=== PATIENT | female | born 2000 | race Caucasian/White ===

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

== ENCOUNTER → 2018-06-29 15:28 | Outpatient (CLI) | payer OTHER, MEDICAID, SELFPAY ==
[2018-06-29 15:50] LABS: Add Manual Diff / Slide Review NO; Basophils Absolute Auto 0 /uL (0-100); Basophils Percent Auto 0.4 % (0-2); Eosinophils Absolute Auto 300 /uL (0-450); Eosinophils Percent Auto 3.3 % (2-4); Hematocrit 40.6 % (36-46); Hemoglobin 13.4 g/dL (12.0-16.0); Lymphocytes Absolute Auto 2000 /uL (1100-4500); Lymphocytes Percent Auto 22.1 % (25-40); Mean Corpuscular Hemoglobin 28.2 PG (26-34); Mean Corpuscular Volume 85.5 fL (80-100); Monocytes Absolute Auto 600 /uL (0-900); Monocytes Percent Auto 6.2 % (3-14); Neutrophils Absolute Auto 6000 /uL (1500-7000); Platelet Count 323 X10^3/uL (150-400); Red Blood Cell Count 4.75 X10^6/uL (4.0-5.2); Red Cell Distribution Width 14.4 % (11.6-14.8); White Blood Cell Count 8.9 X10^3/uL (4.5-11.0)
[2018-06-29 16:51] LABS: BUN Creatinine Ratio 18.6 (6-22); Blood Urea Nitrogen 13 mg/dL (7-17); Calcium 9.4 mg/dL (8.4-10.2); Carbon Dioxide 24 mmol/L (22-32); Chloride 103 mmol/L (98-107); Estimated Glomerular Filt Rate > 60.0 mL/min (>60); Glucose 83 mg/dL (70-100); HEMOLYSIS 26 (0-50); Potassium 5.1 mmol/L (3.4-5.1); Sodium 139 mmol/L (137-145)
[2018-06-29 17:22] LABS: TSH w/ Reflex to FT4 2.02 uIU/mL (0.47-4.68)
[2018-06-29 17:40] LABS: Vitamin B12 516 pg/mL (239-931)
== END ==
PROVIDERS: PCP Family Medicine; Visit Provider Family Medicine
DX: F41.8 Other specified anxiety disorders (principal); G56.03 Carpal tunnel syndrome, bilateral upper limbs
CPT/HCPCS: 36415; 80048; 82607; 84443; 85025

== ENCOUNTER 2019-06-05 23:33 | Emergency (ER) | payer OTHER, MEDICAID, SELFPAY ==
[2019-06-05 23:39] VITALS: BP 144/93; PULSE 104; RESP 18; TEMP 37; O2SAT 98
--- NOTE | 2019-06-05 23:46 | DI.RAD.S_ITS ---
PROCEDURE: XR HIP W PEL IF DONE RT 2V INDICATIONS: pain right hip TECHNIQUE: AP pelvis with lateral view(s) of the right hip(s). COMPARISON: None. FINDINGS: Bones: No displaced fractures or dislocations. Pelvic ring appears intact. No suspicious bony lesions. No significant degenerative changes of the pelvic joints are present. Soft tissues: The visualized bowel gas pattern is normal. No suspicious soft tissue calcifications. An intrauterine contraceptive device is identified within the mid pelvis. IMPRESSION: No acute fractures of the right hip. Note: The preliminary ED physician interpretation and the final report are concordant. Dictated by: Reynaldo Tapia M.D. on 06/06/2019 at 7:05 Approved by: Reynaldo Tapia M.D. on 06/06/2019 at 7:06
--- NOTE | 2019-06-05 23:47 | ED_ITS ---
HPI - General Adult General Chief complaint: Urogenital-Female Stated complaint: pelvic pain spreading to hip and down femur Time Seen by Provider: 06/05/19 23:38 Source: patient Mode of arrival: Ambulatory Limitations: no limitations History of Present Illness HPI narrative: 19-year-old female here for evaluation of right lower quadrant abdominal/adnexal pain and right hip pain. Patient states it has been going on for the past 3-4 days. She took 1 dose of ibuprofen today and 1 dose of Tylenol yesterday without any improvement. No urinary symptoms. No vaginal bleeding. No change in bowel habits. No specific trauma. States that it started approximately 4 days ago while she was at work. She states that it initially felt like it was a ?cramp? that she normally has when she has menstrual cycles however now it is more painful in her right anterior thigh. Related Data Home Medications Medication Instructions Recorded Confirmed trazodone 50 mg tablet 50 mg PO BEDTIME PRN 03/01/19 03/08/19 venlafaxine 75 mg tablet 75 mg PO DAILY 03/01/19 03/08/19 Previous Rx's Medication Instructions Recorded loratadine 10 mg tablet 10 mg PO DAILY #30 tab 09/25/17 levonorgestrel 0.15 mg-ethinyl 1 tab PO DAILY #84 tab 10/23/18 estradiol 0.03 mg tablet doxycycline hyclate 100 mg capsule 100 mg PO BID #28 cap 03/08/19 Allergies Allergy/AdvReac Type Severity Reaction Status Date / Time No Known Allergies Allergy Uncoded 03/08/19 10:33 Review of Systems Constitutional Constitutional: Denies fever(s) Cardiovascular Cardiovascular: Denies chest pain and Denies dyspnea Respiratory Respiratory: Denies dyspnea Gastrointestinal Gastrointestinal: Reports abdominal pain (Right lower quadrant), Denies nausea and Denies vomiting Genitourinary Genitourinary: Denies dysuria, Reports pelvic pain (Right adnexa) and Denies vaginal discharge Musculoskeletal Comments: Right anterior thigh pain Integumentary/Breasts Skin/Breast: Denies rash Neurologic Neurologic: Denies behavioral changes Psychiatric Psychiatric: Denies behavioral changes Hematologic/Lymphatic Hematologic/Lymphatic: Denies easy bleeding and Denies easy bruising Patient History Medical History Allergic rhinitis (Chronic) Asthma (Chronic) Carpal tunnel syndrome on both sides (Chronic) Depression with anxiety (Chronic) History of self mutilation (Chronic) Insomnia (Chronic) Irregular menses (Resolved) Nexplanon in place (Chronic ~04/2016) Vision disorder (Chronic) Surgical History (Updated 12/07/17 @ 09:30 by Mariaelena Wilkerson) [place] teeth extracted (Chronic ~06/06/16) Family History (Updated 12/07/17 @ 09:32 by Mariaelena Wilkerson) Father Hypertension Mother Diabetes mellitus Heart disease Hypertension Hyperlipidemia Stroke Brother Diabetes mellitus Social History other: rare ETOH, rare THC Smoking Status: Never smoker alcohol intake: current substance use type: marijuana Smoking Status: Never smoker alcohol intake frequency: 0-2 drinks per day Substance Use Type: does not use Exam Initial Vital Signs Initial Vital Signs: Vital Signs Temperature 98.6 F 06/05/19 23:39 Pulse Rate 104 H 06/05/19 23:39 Respiratory Rate 18 06/05/19 23:39 Blood Pressure 144/93 H 06/05/19 23:39 Pulse Oximetry 98 06/05/19 23:39 Const General: cooperative and comfortable HENMT Head: normal to inspection and normocephalic Resp Effort & Inspection: normal respiratory effort Auscultation: clear to auscultation bilaterally Cardio Rate: regular rate GI Inspection: non-distended Palpation: soft, No firm and tender (Right adnexa) Back/Spine/Pelvis Back: No CVA tenderness Skin Lesions: no lesions Rashes: no rashes Neuro General: alert and awake Cognition: normal cognition Gait: normal gait Extrem Other: Patient with tenderness to palpation on the right anterior thigh and over the greater trochanter on the left with palpation. Pain when she raises her right leg. Pain with internal and external rotation of the right hip. Psych Appearance: grossly normal and well kempt Course Orders Ordered: ED Orders 06/05/19 23:46 XR hip w pel if done RT 2V Stat Vital Signs Vital signs: Vital Signs - 8 hr 06/05/19 23:39 Temperature 98.6 F Pulse Rate 104 H Respiratory Rate 18 Blood Pressure 144/93 H Pulse Oximetry 98 Medical Decision Making Lab Data Lab results reviewed: Yes I reviewed the patient's lab results. Labs: Point of Care Testing Test Results Negative Urine Dip Bedside Urine Glucose Negative Bedside Urine Bilirubin - Negative Bedside Urine Ketone - Negative Urine Specific [place] 1.030 Bedside Urine Occult Blood +/- Bedside Urine pH 6.0 Bedside Urine Protein +/- 15 Bedside Urine Urobilinogen - Negative Bedside Urine Nitrite - Negative Bedside Urine Leukocytes - Negative Esterase Point of care testing: Point of Care Testing Test Results Negative Urine Dip Bedside Urine Glucose Negative Bedside Urine Bilirubin - Negative Bedside Urine Ketone - Negative Urine Specific [place] 1.030 Bedside Urine Occult Blood +/- Bedside Urine pH 6.0 Bedside Urine Protein +/- 15 Bedside Urine Urobilinogen - Negative Bedside Urine Nitrite - Negative Bedside Urine Leukocytes - Negative Esterase Imaging Data Extremity x-ray #1: Attestation: I personally reviewed and interpreted this imaging study as follows: My Impression: No fracture dislocation right hip x-ray [facility] Narrative Medical decision making narrative: Patient without any vaginal bleeding. No urinary symptoms. Labs unremarkable. Does have tenderness to palpation over the right groin area and also over the anterior thigh and also over the greater trochanter on the right. Considered ovarian pathology however her exam I feel is less likely an ovarian torsion. Also considered other issues such as a femoral hernia however I do feel that the most likely cause is musculoskeletal. The x-ray showed no signs of fractures. I do not feel the patient needs emergent ultrasound. Discussed return precautions and follow-up instructions. Patient expressed understanding and agreement plan. Discharge Plan Departure Patient Disposition: Home Clinical Impression: Rt groin pain Activity Restrictions/Additional Instructions: Recommend that you continue with the Tylenol and ibuprofen. On Friday contact your primary provider for a follow-up. Return to the emergency department for any new or worsening symptoms Prescriptions: No Action loratadine [Allergy Relief (loratadine)] 10 mg tablet 10 mg PO DAILY Qty: 30 RF: 5 levonorgestrel-ethinyl estrad [[place] (28)] 0.15-0.03 mg tablet 1 tab PO DAILY Qty: 84 RF: 0 venlafaxine 75 mg tablet 75 mg PO DAILY RF: 0 trazodone 50 mg tablet 50 mg PO BEDTIME PRNRF: 0 doxycycline hyclate 100 mg capsule 100 mg PO BID Qty: 28 RF: 0 Referrals: Sophy Mak DO [Primary Care Provider] -
== END 2019-06-06 00:50 | disposition home or self-care (01) ==
PROVIDERS: Emergency Provider Emergency Medicine; PCP Family Medicine
DX: R10.31 Right lower quadrant pain (principal)
CPT/HCPCS: 73502; 81003; 81025; 99283

== ENCOUNTER → 2020-04-28 11:43 | Outpatient (CLI) | payer OTHER, MEDICAID, SELFPAY ==
[2020-04-28 12:57] LABS: Hematocrit 40.2 % (36-46); Hemoglobin 13.3 g/dL (12.0-16.0); Mean Corpuscular HGB Conc 32.9 % (30-36); Mean Corpuscular Hemoglobin 27.8 PG (26-34); Mean Corpuscular Volume 84.4 fL (80-100); Platelet Count 379 X10^3/uL (150-400); Red Blood Cell Count 4.77 X10^6/uL (4.0-5.2); Red Cell Distribution Width 14.8 % (11.6-14.8); White Blood Cell Count 7.4 X10^3/uL (4.5-11.0)
[2020-04-28 13:58] LABS: BUN Creatinine Ratio 12.2 (6-22); Blood Urea Nitrogen 10 mg/dL (7-17); Calcium 9.8 mg/dL (8.4-10.2); Carbon Dioxide 27 mmol/L (22-32); Chloride 106 mmol/L (98-107); Estimated Glomerular Filt Rate > 60.0 mL/min (>60); Glucose 95 mg/dL (70-100); HEMOLYSIS < 15 (0-50); Potassium 4.3 mmol/L (3.4-5.1); Sodium 139 mmol/L (137-145)
[2020-04-29 06:36] LABS: HSV 2 IGG AB < 0.91 index (0.00-0.90); HSV1IGG < 0.91 index (0.00-0.90)
[2020-04-29 08:08] LABS: RPR Screen Non Reactive (Non Reactive)
[2020-05-01 17:25] LABS: Hepatitis B Surface Antigen NEGATIVE s/c (NEGATIVE)
[2020-05-01 17:33] LABS: HIV 1 & 2 Ab/Ag 4th Gen Combo NEGATIVE (NEGATIVE); Hep C Virus Ab w/Reflex Quant NEGATIVE s/c (NEGATIVE)
== END ==
PROVIDERS: PCP Family Medicine; Referring Provider Nurse Practitioner Family; Visit Provider Nurse Practitioner Family
DX: Z20.2 Contact with and (suspected) exposure to infections with a predominantly sexual mode of transmission (principal); J45.20 Mild intermittent asthma, uncomplicated
CPT/HCPCS: 36415; 80048; 85027; 86592; 86695; 86696; 86803; 87340; 87389; 87491; 87591

== ENCOUNTER → 2020-05-28 13:57 | Outpatient (CLI) | payer OTHER, MEDICAID, SELFPAY ==
[2020-05-28 16:14] LABS: COVID19 -Nasal RAPID Negative (Negative)
== END ==
PROVIDERS: PCP Family Medicine; Visit Provider Physician Assistant
DX: Z20.822 Contact with and (suspected) exposure to COVID-19 (principal); J02.9 Acute pharyngitis, unspecified
CPT/HCPCS: 87070; 87635

== ENCOUNTER → 2021-06-12 16:38 | Outpatient (CLI) | payer OTHER, MEDICAID, SELFPAY ==
[2021-06-12 16:58] LABS: COVID19 -Nasal RAPID Negative (Negative)
== END ==
PROVIDERS: PCP Family Medicine; Referring Provider Physician Assistant; Visit Provider Physician Assistant
DX: Z20.822 Contact with and (suspected) exposure to COVID-19 (principal)
CPT/HCPCS: 87635

== ENCOUNTER 2022-06-15 12:17 | Emergency (ER) | payer OTHER, MEDICAID, SELFPAY ==
[2022-06-15] VITALS (25 sets, daily range): BP systolic 114–145; BP diastolic 67–96; PULSE 58–80; RESP 18–43; TEMP 36.6; O2SAT 98–100; BMI 43.0
--- NOTE | 2022-06-15 12:33 | DI.RAD.S_ITS ---
PROCEDURE: XR CHEST 1V INDICATIONS: Shortness of breath TECHNIQUE: One view of the chest was acquired. COMPARISON: None. FINDINGS: Surgical changes and devices: None. Lungs and pleura: Lungs are clear. No pleural effusions or pneumothorax. Mediastinum: Mediastinal contours appear normal. Heart size is normal. Bones and chest wall: No suspicious bony lesions. Overlying soft tissues appear unremarkable. IMPRESSION: No acute cardiopulmonary disease. Dictated by: Natlaie Flores M.D. on 06/15/2022 at 12:06 Approved by: Natalie Flores M.D. on 06/15/2022 at 12:06
[2022-06-15 13:18] LABS: Add Manual Diff / Slide Review NO; Basophils Absolute Auto 0 /uL (0-100); Basophils Percent Auto 0.3 % (0-2); Eosinophils Absolute Auto 100 /uL (0-450); Eosinophils Percent Auto 3.7 % (2-4); Hematocrit 38.9 % (36-46); Hemoglobin 13.1 g/dL (12.0-16.0); Lymphocytes Absolute Auto 1700 /uL (1100-4500); Lymphocytes Percent Auto 46.2 % (25-40); Mean Corpuscular HGB Conc 33.8 % (30-36); Mean Corpuscular Hemoglobin 28.1 PG (26-34); Mean Corpuscular Volume 83.2 fL (80-100); Monocytes Absolute Auto 300 /uL (0-900); Monocytes Percent Auto 9.3 % (3-14); Neutrophils Absolute Auto 1500 /uL (1500-7000); Neutrophils Percent Auto 40.5 % (50-75); Platelet Count 251 X10^3/uL (150-400); Red Blood Cell Count 4.67 X10^6/uL (4.0-5.2); Red Cell Distribution Width 14.1 % (11.6-14.8); White Blood Cell Count 3.7 X10^3/uL (4.5-11.0)
[2022-06-15 13:23] LABS: INR 1.2 (0.9-1.3); Prothrombin Time 14.1 SECONDS (10.1-12.7)
[2022-06-15 13:27] LABS: Lactate (Lactic Acid) 0.9 mmol/L (0.7-2.1)
--- NOTE | 2022-06-15 13:27 | ED_ITS ---
HPI - SOB/Dyspnea <Gianna Fajardo PA-C - Last Filed: 06/15/22 20:43> General Chief Complaint: Shortness of Breath/Dyspnea Stated Complaint: hurts to breathe/flu/vision blurry/not holding liq Time Seen by Provider: 06/15/22 12:20 Source: patient Mode of arrival: Ambulatory Limitations: no limitations History of Present Illness HPI Narrative: This is a 22-year-old female with a history of obesity, asthma, depression and anxiety who presents with concern for URI symptoms with cough and intermittent shortness of breath as well as vomiting for the past 6 days and concern for chest pain when she takes a breath. Patient states her symptoms started on Friday 6 days ago with headache, sore throat and progressed to a cough by Friday she was vomiting frequently and having difficulty keeping food or fluids down. She states she has not been taking her medications since Friday including her psych medications because she has not been able to keep things down. She thinks she may have eaten something early in the week but feels she has not actually had any fluids for the last 2 days. She states she missed work early in the week but had to go back to work yesterday and when she was returning from work walking home she said she felt very dizzy and unwell at 1 point. She went to sleep around 4:00 p.m. and woke up at 10 this morning. She did have a normal bowel movement this morning for her. After talking to her mother on the phone her mother convinced her to come into the emergency department. She denies any persistent chest pain, back pain, fevers, diarrhea or any other symptoms. Related Data Previous Rx's Medication Instructions Recorded loratadine 10 mg tablet (Allergy 10 mg PO DAILY #30 tabs 12/17/19 Relief (loratadine)) albuterol sulfate 90 mcg/actuation 2 puff inhalation Q4HP PRN 05/08/22 aerosol inhaler (Ventolin HFA) shortness of breath or wheezing #2 ea amitriptyline 10 mg tablet 10 mg PO BEDTIME PRN sleep #30 tabs 05/08/22 fluoxetine 10 mg capsule 10 mg PO DAILY #30 caps 05/08/22 hydroxyzine HCl 25 mg tablet 25 mg PO QID PRN anxiety #30 tabs 05/08/22 benzonatate 100 mg capsule 100 mg PO TID PRN cough 7 days #21 06/15/22 caps ondansetron 4 mg disintegrating 4 mg PO Q6H PRN nausea and 06/15/22 tablet vomiting #30 tabs Allergies Allergy/AdvReac Type Severity Reaction Status Date / Time No Known Allergies Allergy Uncoded 03/20/22 11:32 Review of Systems <Gianna Fajardo PA-C - Last Filed: 06/15/22 20:43> Review of Systems Narrative: Unremarkable except as noted in the HPI Patient History <Gianna Fajardo PA-C - Last Filed: 06/15/22 20:43> Medical History (Updated 06/15/22 @ 16:54 by Gianna Fajardo PA-C) Allergic rhinitis Asthma Carpal tunnel syndrome on both sides Depression with anxiety History of self mutilation Insomnia Irregular menses Nexplanon in place (~04/2016) Vision disorder Surgical History [place] teeth extracted (~06/06/16) Family History Father Hypertension Mother Diabetes mellitus Heart disease Hypertension Hyperlipidemia Stroke Brother Diabetes mellitus Social History other: rare ETOH, rare THC Smoking Status: Never smoker alcohol intake: current substance use type: marijuana Smoking Status: Never smoker alcohol intake frequency: 0-2 drinks per day Substance Use Type: marijuana Exam <Gianna Fajardo PA-C - Last Filed: 06/15/22 20:43> Initial Vital Signs Initial Vital Signs: Vital Signs Temperature 98 F 06/15/22 12:20 Pulse Rate 79 06/15/22 12:20 Respiratory Rate 18 06/15/22 12:20 Blood Pressure 141/75 H 06/15/22 12:20 Pulse Oximetry 98 06/15/22 12:20 Oxygen Delivery Method 06/15/22 12:20 HENMT Head: normal to inspection Face and sinus: normal facial exam Eyes General: Yes appearance normal, both eyes and all related structures Pupils: PERRL Resp Effort & Inspection: normal respiratory effort Auscultation: clear to auscultation bilaterally GI Inspection: normal to inspection and other (Protuberant) Palpation: soft and No tender Auscultation: normal bowel sounds Skin General: no rashes or lesions noted Extrem General: normal to inspection <Bhumi Alvarado DO - Last Filed: 06/16/22 08:26> Initial Vital Signs Initial Vital Signs: Vital Signs Temperature 98 F 06/15/22 12:20 Pulse Rate 79 06/15/22 12:20 Respiratory Rate 18 06/15/22 12:20 Blood Pressure 141/75 H 06/15/22 12:20 Pulse Oximetry 98 06/15/22 12:20 Oxygen Delivery Method 06/15/22 12:20 Course <Gianna Fajardo PA-C - Last Filed: 06/15/22 20:43> Orders Ordered: Discontinued Medications Sodium Chloride (Normal Saline 0.9%) 1,000 mls @ 1,000 mls/hr IV BOLUS ONE Stop: 06/15/22 14:30 Last Infusion: 06/15/22 17:16 Dose: 0 mls/hr Documented By: Admin: 06/15/22 13:59 Dose: 1,000 mls/hr Documented By: OUSMANE Ondansetron HCl (Ondansetron 4 Mg/2 Ml Inj) 4 mg IV NOW ONE Stop: 06/15/22 14:02 Last Admin: 06/15/22 14:05 Dose: 4 mg Documented By: OUSMANE Reevaluation(s) Reevaluation #1: Did rechecked the patient and discuss lab results with her so far as well as the chest x-ray which was unremarkable and the fact that she did return COVID positive on testing today. We will wait for additional fluids to bolus in as she is a little dehydrated. And advised her that we plan to do a p.o. challenge. She did receive Zofran but does not feel that she necessarily has her nausea completely under control. We will consider additional antiemetics as needed. Time: 15:55 Vital Signs Vital signs: Vital Signs - 8 hr 06/15/22 12:39 06/15/22 12:39 06/15/22 13:00 Pulse Rate 76 69 Respiratory Rate 20 20 Blood Pressure 143/81 H Pulse Oximetry 100 100 06/15/22 13:14 06/15/22 13:14 06/15/22 13:30 Pulse Rate 70 63 Respiratory Rate 20 23 Blood Pressure 136/93 H Pulse Oximetry 100 99 06/15/22 13:37 06/15/22 13:37 06/15/22 14:00 Pulse Rate 66 67 Respiratory Rate 43 H 27 H Blood Pressure 145/96 H Pulse Oximetry 99 100 06/15/22 14:03 06/15/22 14:03 06/15/22 14:09 Pulse Rate 72 Respiratory Rate 24 Blood Pressure 136/95 H 118/67 Pulse Oximetry 99 06/15/22 14:09 06/15/22 14:21 06/15/22 14:21 Pulse Rate 63 66 Respiratory Rate 24 29 H Blood Pressure 118/68 Pulse Oximetry 99 99 06/15/22 14:30 06/15/22 15:00 06/15/22 15:01 Pulse Rate 62 61 Respiratory Rate 26 H 21 Blood Pressure 114/74 Pulse Oximetry 99 99 06/15/22 15:01 06/15/22 15:20 06/15/22 15:20 Pulse Rate 58 L 61 Respiratory Rate 20 21 Blood Pressure 129/71 Pulse Oximetry 100 98 06/15/22 15:30 06/15/22 15:40 06/15/22 15:40 Pulse Rate 70 74 Respiratory Rate 23 22 Blood Pressure 134/74 Pulse Oximetry 98 100 06/15/22 16:00 06/15/22 16:01 06/15/22 16:01 Pulse Rate 66 64 Respiratory Rate 22 Blood Pressure 138/96 H Pulse Oximetry 100 99 06/15/22 16:21 06/15/22 16:21 06/15/22 16:30 Pulse Rate 67 80 Respiratory Rate 28 H Blood Pressure 131/74 Pulse Oximetry 100 100 06/15/22 17:00 06/15/22 17:01 06/15/22 17:01 Pulse Rate 69 68 Respiratory Rate 22 25 H Blood Pressure 131/71 Pulse Oximetry 100 100 06/15/22 17:12 06/15/22 17:12 Pulse Rate 69 Respiratory Rate 20 Blood Pressure 133/73 Pulse Oximetry 100 <Bhumi Alvarado, - Last Filed: 06/16/22 08:26> Orders Ordered: Discontinued Medications Sodium Chloride (Normal Saline 0.9%) 1,000 mls @ 1,000 mls/hr IV BOLUS ONE Stop: 06/15/22 14:30 Last Infusion: 06/15/22 17:16 Dose: 0 mls/hr Documented By: Admin: 06/15/22 13:59 Dose: 1,000 mls/hr Documented By: OUSMANE Ondansetron HCl (Ondansetron 4 Mg/2 Ml Inj) 4 mg IV NOW ONE Stop: 06/15/22 14:02 Last Admin: 06/15/22 14:05 Dose: 4 mg Documented By: OUSMANE Vital Signs Vital signs: Vital Signs - 8 hr 06/15/22 12:39 06/15/22 12:39 06/15/22 13:00 Pulse Rate 76 69 Respiratory Rate 20 20 Blood Pressure 143/81 H Pulse Oximetry 100 100 06/15/22 13:14 06/15/22 13:14 06/15/22 13:30 Pulse Rate 70 63 Respiratory Rate 20 23 Blood Pressure 136/93 H Pulse Oximetry 100 99 06/15/22 13:37 06/15/22 13:37 06/15/22 14:00 Pulse Rate 66 67 Respiratory Rate 43 H 27 H Blood Pressure 145/96 H Pulse Oximetry 99 100 06/15/22 14:03 06/15/22 14:03 06/15/22 14:09 Pulse Rate 72 Respiratory Rate 24 Blood Pressure 136/95 H 118/67 Pulse Oximetry 99 06/15/22 14:09 06/15/22 14:21 06/15/22 14:21 Pulse Rate 63 66 Respiratory Rate 24 29 H Blood Pressure 118/68 Pulse Oximetry 99 99 06/15/22 14:30 06/15/22 15:00 06/15/22 15:01 Pulse Rate 62 61 Respiratory Rate 26 H 21 Blood Pressure 114/74 Pulse Oximetry 99 99 06/15/22 15:01 06/15/22 15:20 06/15/22 15:20 Pulse Rate 58 L 61 Respiratory Rate 20 21 Blood Pressure 129/71 Pulse Oximetry 100 98 06/15/22 15:30 06/15/22 15:40 06/15/22 15:40 Pulse Rate 70 74 Respiratory Rate 23 22 Blood Pressure 134/74 Pulse Oximetry 98 100 06/15/22 16:00 06/15/22 16:01 06/15/22 16:01 Pulse Rate 66 64 Respiratory Rate 22 Blood Pressure 138/96 H Pulse Oximetry 100 99 06/15/22 16:21 06/15/22 16:21 06/15/22 16:30 Pulse Rate 67 80 Respiratory Rate 28 H Blood Pressure 131/74 Pulse Oximetry 100 100 06/15/22 17:00 06/15/22 17:01 06/15/22 17:01 Pulse Rate 69 68 Respiratory Rate 22 25 H Blood Pressure 131/71 Pulse Oximetry 100 100 06/15/22 17:12 06/15/22 17:12 Pulse Rate 69 Respiratory Rate 20 Blood Pressure 133/73 Pulse Oximetry 100 MDM - SOB/Dyspnea <Gianna Fajardo PA-C - Last Filed: 06/15/22 20:43> Differential Diagnosis Differential diagnosis: Likely other (Viral illness, anxiety, COVID-19) Condition is:: Well Controlled Condition is at treatment goal?: Yes Medical Records Medical records narrative: I care for this patient during her emergency department stay. I also discussed this patient with Dr. Alvarado emergency department attending. Lab Data Result diagrams: 06/15/22 13:02 06/15/22 13:02 Labs: Lab Results 06/15/22 06/15/22 06/15/22 Range/Units 12:27 13:02 13:02 WBC 3.7 L (4.5-11.0) X10^3/uL RBC 4.67 (4.0-5.2) X10^6/uL Hgb 13.1 (12.0-16.0) g/dL Hct 38.9 (36-46) % MCV 83.2 (80-100) fL MCH 28.1 (26-34) PG MCHC 33.8 (30-36) % RDW 14.1 (11.6-14.8) % Plt Count 251 (150-400) X10^3/uL Neut % (Auto) 40.5 L (50-75) % Lymph % (Auto) 46.2 H (25-40) % Norton % (Auto) 9.3 (3-14) % Eos % (Auto) 3.7 (2-4) % Baso % (Auto) 0.3 (0-2) % Neut # (Auto) 1500 (2167-1719) /uL Lymph # (Auto) 1700 (1463-8747) /uL Norton # (Auto) 300 (0-900) /uL Eos # (Auto) 100 (0-450) /uL Baso # (Auto) 0 (0-100) /uL PT 14.1 H (10.1-12.7) SECONDS INR 1.2 (0.9-1.3) Sodium (137-145) mmol/L Potassium (3.4-5.1) mmol/L Chloride (98-107) mmol/L Carbon Dioxide (22-32) mmol/L BUN (7-17) mg/dL Creatinine (0.52-1.04) mg/dL Estimated GFR (>60) mL/min BUN/Creatinine Ratio (6-22) Glucose (70-100) mg/dL Lactate (0.7-2.1) mmol/L Calcium (8.4-10.2) mg/dL Total Bilirubin (0.2-1.3) mg/dL AST (14-36) IU/L ALT (<35) IU/L Alkaline Phosphatase (38-126) U/L Troponin I (0.01-0.034) ng/mL NT-Pro-B Natriuret Pep (<125) pg/mL Total Protein (6.3-8.2) g/dL Albumin (3.5-5.0) g/dL Globulin (1.7-4.1) g/dL Albumin/Globulin Ratio (1.0-2.8) Chlamy pneumoniae PCR Not detected (Not Detect) Adenovirus (PCR) Not detected (Not Detect) B. pertussis DNA (PCR) Not detected (Not Detecte) B.parapertussis DNA PCR Not detected (Not Detecte) Coronavirus OC43 (PCR) Not detected (Not Detect) Coronavirus HKU1 (PCR) Not detected (Not Detect) Coronavirus 229E (PCR) Not detected (Not Detect) SARS-CoV-2 (PCR) Detected H (Not Detecte) Coronavirus NL63 (PCR) Not detected (Not Detect) Human Metapneumovir PCR Not detected (Not Detect) Influenza Type A (PCR) Not detected (Not Detect) Influenza Type B (PCR) Not detected (Not Detect) M. pneumoniae (PCR) Not detected (Not Detect) Parainfluenza 1 (PCR) Not detected (Not Detect) Parainfluenza 2 (PCR) Not detected (Not Detect) Parainfluenza 3 (PCR) Not detected (Not Detect) Parainfluenza 4 (PCR) Not detected (Not Detect) RSV (PCR) Not detected (Not Detect) Entero/Rhino (PCR) Not detected (Not Detect) 06/15/22 06/15/22 Range/Units 13:02 13:02 WBC (4.5-11.0) X10^3/uL RBC (4.0-5.2) X10^6/uL Hgb (12.0-16.0) g/dL Hct (36-46) % MCV (80-100) fL MCH (26-34) PG MCHC (30-36) % RDW (11.6-14.8) % Plt Count (150-400) X10^3/uL Neut % (Auto) (50-75) % Lymph % (Auto) (25-40) % Norton % (Auto) (3-14) % Eos % (Auto) (2-4) % Baso % (Auto) (0-2) % Neut # (Auto) (7883-8361) /uL Lymph # (Auto) (8254-2330) /uL Norton # (Auto) (0-900) /uL Eos # (Auto) (0-450) /uL Baso # (Auto) (0-100) /uL PT (10.1-12.7) SECONDS INR (0.9-1.3) Sodium 143 (137-145) mmol/L Potassium 4.1 (3.4-5.1) mmol/L Chloride 106 (98-107) mmol/L Carbon Dioxide 26 (22-32) mmol/L BUN 7 (7-17) mg/dL Creatinine 0.78 (0.52-1.04) mg/dL Estimated GFR > 60 (>60) mL/min BUN/Creatinine Ratio 9.0 (6-22) Glucose 93 (70-100) mg/dL Lactate 0.9 (0.7-2.1) mmol/L Calcium 8.8 (8.4-10.2) mg/dL Total Bilirubin 0.5 (0.2-1.3) mg/dL AST 62 H (14-36) IU/L ALT 41 H (<35) IU/L Alkaline Phosphatase 67 (38-126) U/L Troponin I < 0.012 (0.01-0.034) ng/mL NT-Pro-B Natriuret Pep 85 (<125) pg/mL Total Protein 8.1 (6.3-8.2) g/dL Albumin 4.4 (3.5-5.0) g/dL Globulin 3.7 (1.7-4.1) g/dL Albumin/Globulin Ratio 1.2 (1.0-2.8) Chlamy pneumoniae PCR (Not Detect) Adenovirus (PCR) (Not Detect) B. pertussis DNA (PCR) (Not Detecte) B.parapertussis DNA PCR (Not Detecte) Coronavirus OC43 (PCR) (Not Detect) Coronavirus HKU1 (PCR) (Not Detect) Coronavirus 229E (PCR) (Not Detect) SARS-CoV-2 (PCR) (Not Detecte) Coronavirus NL63 (PCR) (Not Detect) Human Metapneumovir PCR (Not Detect) Influenza Type A (PCR) (Not Detect) Influenza Type B (PCR) (Not Detect) M. pneumoniae (PCR) (Not Detect) Parainfluenza 1 (PCR) (Not Detect) Parainfluenza 2 (PCR) (Not Detect) Parainfluenza 3 (PCR) (Not Detect) Parainfluenza 4 (PCR) (Not Detect) RSV (PCR) (Not Detect) Entero/Rhino (PCR) (Not Detect) Point of Care Testing Glucose POC 90 Imaging Data Chest x-ray: Radiologist's Impression: [address] [address] XRay Report Signed Patient: Dara Cardona MR#: [id number] : 2000 Acct:[id number] Age/Sex: 22 / F Date of Service: 06/15/22 Loc: ED Accession Number: [id number] ?? Procedure: XR chest 1V Ordering Provider: Bhumi Alvarado D.O. PROCEDURE:? XR CHEST 1V ? INDICATIONS:? Shortness of breath ? TECHNIQUE:? One view of the chest was acquired.? ? COMPARISON:? None. ? FINDINGS:? ? Surgical changes and devices:? None.? ? Lungs and pleura:? Lungs are clear.? No pleural effusions or pneumothorax.? ? Mediastinum:? Mediastinal contours appear normal.? Heart size is normal.? ? Bones and chest wall:? No suspicious bony lesions.? Overlying soft tissues appear unremarkable.? ? IMPRESSION:? No acute cardiopulmonary disease.? ? ? Dictated by: Natalie Flores M.D. on 06/15/2022 at 12:06 ? ? Approved by: Natalie Flores M.D. on 06/15/2022 at 12:06?? [facility] Narrative Medical decision making narrative: Is a 22-year-old female with history of obesity and asthma who presents with concern for 6 days of URI/flu-like symptoms with vomiting and inability to keep food and fluids down. Patient also expressed concern for dizziness upon arrival in also acknowledge that she is not been able to keep her medications including her psych meds down due to her frequent vomiting. Reportedly vomited 7 times today. Did eat in the last couple of days but has had little fluid intake in the last 2 days. Labs obtained today are largely unremarkable. She does return positive for COVID despite negative home tests recently. Discussed with the patient that this likely explains her symptoms. I suspect there may also be a slight psych component and anxiety in this patient who has not been taking her anxiety medications for the last 5 days due to reported inability to keep them down. Patient's EKG was unremarkable. Her chest x-ray was not suggestive of a pneumonia and was generally unremarkable. Her vitals remained within normal limits during her emergency department stay. After discussion of plan for symptomatic home management, using her albuterol inhaler as needed, prescription for Zofran for nausea and discussion of need to drink small sips of fluid rather than large quantities and take it easy in terms of her diet for the next few days patient was in understanding and agreement with the plan. Return precautions provided, follow-up plan discussed, all questions answered. <Bhumi Alvarado, DO - Last Filed: 06/16/22 08:26> Lab Data Labs: Lab Results 06/15/22 06/15/22 06/15/22 Range/Units 12:27 13:02 13:02 WBC 3.7 L (4.5-11.0) X10^3/uL RBC 4.67 (4.0-5.2) X10^6/uL Hgb 13.1 (12.0-16.0) g/dL Hct 38.9 (36-46) % MCV 83.2 (80-100) fL MCH 28.1 (26-34) PG MCHC 33.8 (30-36) % RDW 14.1 (11.6-14.8) % Plt Count 251 (150-400) X10^3/uL Neut % (Auto) 40.5 L (50-75) % Lymph % (Auto) 46.2 H (25-40) % Norton % (Auto) 9.3 (3-14) % Eos % (Auto) 3.7 (2-4) % Baso % (Auto) 0.3 (0-2) % Neut # (Auto) 1500 (7244-6207) /uL Lymph # (Auto) 1700 (2293-7713) /uL Norton # (Auto) 300 (0-900) /uL Eos # (Auto) 100 (0-450) /uL Baso # (Auto) 0 (0-100) /uL PT 14.1 H (10.1-12.7) SECONDS INR 1.2 (0.9-1.3) Sodium (137-145) mmol/L Potassium (3.4-5.1) mmol/L Chloride (98-107) mmol/L Carbon Dioxide (22-32) mmol/L BUN (7-17) mg/dL Creatinine (0.52-1.04) mg/dL Estimated GFR (>60) mL/min BUN/Creatinine Ratio (6-22) Glucose (70-100) mg/dL Lactate (0.7-2.1) mmol/L Calcium (8.4-10.2) mg/dL Total Bilirubin (0.2-1.3) mg/dL AST (14-36) IU/L ALT (<35) IU/L Alkaline Phosphatase (38-126) U/L Troponin I (0.01-0.034) ng/mL NT-Pro-B Natriuret Pep (<125) pg/mL Total Protein (6.3-8.2) g/dL Albumin (3.5-5.0) g/dL Globulin (1.7-4.1) g/dL Albumin/Globulin Ratio (1.0-2.8) Chlamy pneumoniae PCR Not detected (Not Detect) Adenovirus (PCR) Not detected (Not Detect) B. pertussis DNA (PCR) Not detected (Not Detecte) B.parapertussis DNA PCR Not detected (Not Detecte) Coronavirus OC43 (PCR) Not detected (Not Detect) Coronavirus HKU1 (PCR) Not detected (Not Detect) Coronavirus 229E (PCR) Not detected (Not Detect) SARS-CoV-2 (PCR) Detected H (Not Detecte) Coronavirus NL63 (PCR) Not detected (Not Detect) Human Metapneumovir PCR Not detected (Not Detect) Influenza Type A (PCR) Not detected (Not Detect) Influenza Type B (PCR) Not detected (Not Detect) M. pneumoniae (PCR) Not detected (Not Detect) Parainfluenza 1 (PCR) Not detected (Not Detect) Parainfluenza 2 (PCR) Not detected (Not Detect) Parainfluenza 3 (PCR) Not detected (Not Detect) Parainfluenza 4 (PCR) Not detected (Not Detect) RSV (PCR) Not detected (Not Detect) Entero/Rhino (PCR) Not detected (Not Detect) 06/15/22 06/15/22 Range/Units 13:02 13:02 WBC (4.5-11.0) X10^3/uL RBC (4.0-5.2) X10^6/uL Hgb (12.0-16.0) g/dL Hct (36-46) % MCV (80-100) fL MCH (26-34) PG MCHC (30-36) % RDW (11.6-14.8) % Plt Count (150-400) X10^3/uL Neut % (Auto) (50-75) % Lymph % (Auto) (25-40) % Norton % (Auto) (3-14) % Eos % (Auto) (2-4) % Baso % (Auto) (0-2) % Neut # (Auto) (8750-1777) /uL Lymph # (Auto) (6175-6097) /uL Norton # (Auto) (0-900) /uL Eos # (Auto) (0-450) /uL Baso # (Auto) (0-100) /uL PT (10.1-12.7) SECONDS INR (0.9-1.3) Sodium 143 (137-145) mmol/L Potassium 4.1 (3.4-5.1) mmol/L Chloride 106 (98-107) mmol/L Carbon Dioxide 26 (22-32) mmol/L BUN 7 (7-17) mg/dL Creatinine 0.78 (0.52-1.04) mg/dL Estimated GFR > 60 (>60) mL/min BUN/Creatinine Ratio 9.0 (6-22) Glucose 93 (70-100) mg/dL Lactate 0.9 (0.7-2.1) mmol/L Calcium 8.8 (8.4-10.2) mg/dL Total Bilirubin 0.5 (0.2-1.3) mg/dL AST 62 H (14-36) IU/L ALT 41 H (<35) IU/L Alkaline Phosphatase 67 (38-126) U/L Troponin I < 0.012 (0.01-0.034) ng/mL NT-Pro-B Natriuret Pep 85 (<125) pg/mL Total Protein 8.1 (6.3-8.2) g/dL Albumin 4.4 (3.5-5.0) g/dL Globulin 3.7 (1.7-4.1) g/dL Albumin/Globulin Ratio 1.2 (1.0-2.8) Chlamy pneumoniae PCR (Not Detect) Adenovirus (PCR) (Not Detect) B. pertussis DNA (PCR) (Not Detecte) B.parapertussis DNA PCR (Not Detecte) Coronavirus OC43 (PCR) (Not Detect) Coronavirus HKU1 (PCR) (Not Detect) Coronavirus 229E (PCR) (Not Detect) SARS-CoV-2 (PCR) (Not Detecte) Coronavirus NL63 (PCR) (Not Detect) Human Metapneumovir PCR (Not Detect) Influenza Type A (PCR) (Not Detect) Influenza Type B (PCR) (Not Detect) M. pneumoniae (PCR) (Not Detect) Parainfluenza 1 (PCR) (Not Detect) Parainfluenza 2 (PCR) (Not Detect) Parainfluenza 3 (PCR) (Not Detect) Parainfluenza 4 (PCR) (Not Detect) RSV (PCR) (Not Detect) Entero/Rhino (PCR) (Not Detect) Point of Care Testing Glucose POC 90 ECG Data Attestation: I personally reviewed and interpreted this ECG as follows: Prior ECG tracings: not available for review Interpretation: Mank: Sinus rhythm with sinus arrhythmia rate of 70 2p are 142 QRS 90 QTC 448. Patient does have inverted T-wave in 3 no other acute changes appreciated. Discharge Plan Departure Patient Disposition: Home Clinical Impression: COVID-19, Atypical chest pain Activity Restrictions/Additional Instructions: Thank you for letting us be part of your care in the emergency department today. We did extensive workup and labs EKG and chest x-ray all of which were looking okay with the exception that you did have positive test for COVID-19. This like ly explains your cough your feelings of shortness of breath on and off over the past week as well as your chest discomfort. I am sending you out with a prescription for Zofran which is an antinausea medicine. I recommend that you take this to help control your symptoms of nausea and vomiting so that you can keep fluid and foods down. You will want to take it slow with eating and do very simple foods such as applesauce dry toast or broths because you have not eaten much solid food for a little while now. I recommend he follow up closely with your primary care provider this week. Do try to stay hydrated but take small frequent sips and do not drink large quantities of water at once. I am providing a work note for you for the next few days as you are still symptomatic from your COVID and this should give you an opportunity to rest. Prescriptions: New ondansetron 4 mg tablet,disintegrating 4 mg PO Q6H PRN (Reason: nausea and vomiting) Qty: 30 0RF benzonatate 100 mg capsule 100 mg PO TID PRN (Reason: cough) 7 Days Qty: 21 1RF No Action loratadine [Allergy Relief (loratadine)] 10 mg tablet 10 mg PO DAILY Qty: 30 5RF fluoxetine 10 mg capsule 10 mg PO DAILY Qty: 30 1RF albuterol sulfate [Ventolin HFA] 90 mcg/actuation HFA aerosol inhaler 2 puff INHALATION Q4HP PRN (Reason: shortness of breath or wheezing) Qty: 2 2RF hydroxyzine HCl 25 mg tablet 25 mg PO QID PRN (Reason: anxiety) Qty: 30 1RF amitriptyline 10 mg tablet 10 mg PO BEDTIME PRN (Reason: sleep) Qty: 30 1RF Referrals: Alisa Bolanos, [Primary Care Provider] - Stand Alone Forms: Patient Portal/API, Work Release Note <Bhumi Alvarado, DO - Last Filed: 06/16/22 08:26> Cosign ED Attending Cosignature Attestation: I was immediately available in the department for consultation. Documentation has been reviewed. Case was discussed.
[2022-06-15 13:28] LABS: Alanine Aminotransferase 41 IU/L (<35); Albumin 4.4 g/dL (3.5-5.0); Albumin Globulin Ratio 1.2 (1.0-2.8); Alkaline Phosphatase 67 U/L (38-126); Aspartate Aminotransferase 62 IU/L (14-36); Bilirubin Total 0.5 mg/dL (0.2-1.3); Blood Urea Nitrogen 7 mg/dL (7-17); Calcium 8.8 mg/dL (8.4-10.2); Carbon Dioxide 26 mmol/L (22-32); Chloride 106 mmol/L (98-107); Estimated Glomerular Filt Rate > 60 mL/min (>60); Globulin 3.7 g/dL (1.7-4.1); Glucose 93 mg/dL (70-100); HEMOLYSIS < 15 (0-50); Potassium 4.1 mmol/L (3.4-5.1); Sodium 143 mmol/L (137-145); Total Protein 8.1 g/dL (6.3-8.2)
[2022-06-15 13:40] LABS: Troponin I < 0.012 ng/mL (0.01-0.034)
[2022-06-15 13:50] LABS: Adenovirus Not Detected (Not Detect); Coronavirus 229E Not Detected (Not Detect); Coronavirus HKU1 Not Detected (Not Detect); Coronavirus NL 63 Not Detected (Not Detect); Coronavirus OC43 Not Detected (Not Detect)
[2022-06-15 13:51] LABS: B. parapertussis Not Detected (Not Detecte); Bordetella pertussis Not Detected (Not Detecte); Chlamydophila pneumoniae Not Detected (Not Detect); Human Metapneumovirus Not Detected (Not Detect); Human Rhinovirus/Enterovirus Not Detected (Not Detect); Influenza A Not Detected (Not Detect); Influenza B Not Detected (Not Detect); Mycoplasma pneumoniae Not Detected (Not Detect); Parainfluenza Virus 1 Not Detected (Not Detect); Parainfluenza Virus 2 Not Detected (Not Detect); Parainfluenza Virus 3 Not Detected (Not Detect); Parainfluenza Virus 4 Not Detected (Not Detect); Respiratory Syncytial Virus Not Detected (Not Detect); SARS- CoV-2 Detected (Not Detecte)
[2022-06-15] MEDS: SODIUM CHLORIDE 0.9% 1,000 ML 1000 ML IV (13:59)
[2022-06-15 14:00] LABS: NT-proBNP (BNP-Adult 18+) 85 pg/mL (<125)
[2022-06-15] MEDS: ONDANSETRON 4 MG/2 ML INJ IV (14:05)
== END 2022-06-15 17:19 | disposition home or self-care (01) ==
PROVIDERS: Emergency Medicine; Emergency Provider Student in an Organized Health Care Education/Training Program; PCP Family Medicine
DX: U07.1 COVID-19 (principal); R07.89 Other chest pain; E86.0 Dehydration
CPT/HCPCS: 36415; 71045; 80053; 83605; 83880; 84484; 85025; 85610; 87633; 93005; 96361; 96374; 99284; J2405

== ENCOUNTER 2022-09-20 06:37 | Day surgery (SDC) | payer OTHER, MEDICAID, SELFPAY ==
[2022-09-20] VITALS (7 sets, daily range): BP systolic 131–149; BP diastolic 67–92; PULSE 85–125; RESP 14–22; TEMP 36.4–36.9; O2SAT 95–99; BMI 42.0
--- NOTE | 2022-09-20 | PATH_ITS ---
[facility] Accession Number: [id number] No. of containers..01 Tissue . 01 Material submitted: . fallopian tube - BILATERAL FALLOPIAN TUBES . 01 Diagnosis: Right and Left Fallopian Tubes, Bilateral Salpingectomy: Two fimbriated fallopian tubes without significant pathologic abnormality. [facility] 09/23/2022 1626 Local . 01 Electronically signed: . Yessenia Levine MD, Pathologist NPI- [id number] . 01 Gross description: . The specimen is received in formalin labeled with the patient's name, , and bilateral fallopian tubes, and consists of two unoriented violaceous fimbriated fallopian tubes. The first measures 5.5 cm in length and 0.7 cm in diameter. The second measures 6.4 cm in length and 0.8 cm in diameter. No paratubal cysts are seen. The tissue is inked blue and black, respectively. Lumens are identified. Embroidery Patternmaker sections to include one-half of each fimbria are submitted in cassettes A1-A2. ([id number]) /[facility] 09/21/2022 1418 Local . 01 Pathologist provided ICD-10: Z30.2 . 01 CPT . 436586 Specimen Comment: A courtesy copy of this report has been sent to [phone] Performed at: 01 [facility] [address] [place] [address] [id number] MD Boo Wiley MD Phone: [phone]
[2022-09-20] MEDS: LACTATED RINGERS 1,000 ML 42 ML IV ×2 (07:07→08:45)
--- NOTE | 2022-09-20 08:00 | PM.PREOP ---
Pre-operative Note COVID-19 Criteria for continued procedure: Non-surgical alternatives not available or appropriate per current SOC Interval Note History & Physical reviewed/Exam performed by Physician: Yes Changes to H&P: No
--- NOTE | 2022-09-20 08:21 | SUR.OPER ---
Lithotomy on padded OR bed, head on pillow, arms padded and tucked. Legs secured in padded yellow fins stirrups.
[2022-09-20] MEDS: BUPIVACAINE 0.5% (PF) 30 ML, EPINEPHrine 0.15 MG INJ (08:43)
--- NOTE | 2022-09-20 09:06 | P.OP_ITS ---
Operative Date/Time/Diagnoses Date of procedure: 09/20/22 Time of procedure: 08:10 Pre-op diagnosis: Request for sterilization Post-op diagnosis: same Procedure & Clinicians Procedure: Procedures Operation Date: 09/20/22 07:45 Actual Procedure Side Surgeon p Laparoscopic Salpingectomy Bilateral Kem Rahman MD Indications: Cat is a 22-year-old A1, LMP 08/04/2022 who presents today for further discussion regarding elective sterilization.? She was seen in May [address] Pedro Pablo Fried who counseled the patient regarding sterilization procedures the patient affirmed her decision to proceed with elective sterilization.? She presents today for her scheduled sterilization procedure.? Patient counseled regarding alternatives, risks, benefits, and potential complications associated with laparoscopic bilateral salpingectomy for elective sterilization.? She understands that the procedures procedure which will result in her permanently and irreversibly being unable to bear children without benefit of assisted reproductive technology.? She also understands that there is a small ([phone]) risk of failure to prevent and that should occur ectopic gestation would be highly probable. Surgeon: Kem Rahman Anesthesia Type: General Operative Notes Findings: Normal pelvis. The uterus is normal in size and shape. Anterior and posterior cul-de-sac are free of any abnormalities. He ovarian fossa and pelvic sidewalls on both sides are normal. Both ovaries appear normal as well as do the fallopian tubes. The appendix was not visualized. The upper abdomen is normal to laparoscopic inspection. Closure Type: primary Specimen(s): left tube and right tube Estimated blood loss (mL): 5 Blood products transfused: none Procedure in detail: With the patient under satisfactory general anesthesia in the modified dorsal lithotomy position, the perineum, vagina, and abdomen were prepped and draped for IUD removal and laparoscopic bilateral salpingectomy. A pre-surgical safety time-out was then taken in accordance with [facility] Main OR protocols. The umbilicus was then infiltrated with 0.5% Marcaine with epinephrine and 1 cm vertical incision was made in the inferior aspect of the umbilicus. Veress needle was used to insufflate the abdomen with carbon dioxide and once appropriately insufflated, 5 mm bladeless trocar and sleeve were inserted through the incision. Proper placement of the sleeve was confirmed with laparoscopic visualization and insufflation of the abdomen continued. A 2nd and 3rd 5 mm laparoscopic port were placed in the right and left mid quadrants using a similar technique and using a 3 puncture technique, the abdomen and pelvis were visualized with the findings as noted above. The distal aspect of the left fallopian tube was then grasped with a grasping forceps and using a Power Seal device, fimbria ovarica was coagulated and divided the dissection using the Power Seal continuing across the mesosalpinx to the cornua where the base fallopian tube was coagulated and divided. The left fallopian tube was then removed through one of the ports and submitted pathologic specimen. Attention was then turned to the right adnexa with distal tube grasped with a grasping forcep. The Power Seal device was then used to coagulate fimbria ovarica and the dissection was carried across the mesosalpinx to the cornua where the fallopian tube on the right side was amputated at the cornua following coagulation proximal tube the Power Seal device. Pelvis was inspected and there were no abnormalities noted following bilateral salpingectomy. The pneumoperitoneum was then vented and the ports removed from the abdominal wall. Port incisions were then closed with 4-0 Monocryl using inverted interrupted stitches and skin glue was applied. Appropriate dressings were then applied, patient was awakened, and transferred to the PACU for a period of observation after having tolerated the procedure well. Complications: none Post-operative Condition: stable Disposition: PACU Plan for aftercare: Routine post-op care.
[2022-09-20] MEDS: ONDANSETRON 4 MG/2 ML INJ IV (10:30)
== END 2022-09-20 10:31 | disposition home or self-care (01) ==
PROVIDERS: PCP Registered Nurse Diabetes Educator; Referring Provider Obstetrics & Gynecology; Visit Provider Obstetrics & Gynecology
PROC: 0UT74ZZ Resection of Bilateral Fallopian Tubes, Percutaneous Endoscopic Approach (ICD-10-PCS; CPT 58661; principal; 2022-09-20 07:45)
DX: Z30.2 Encounter for sterilization (principal)
CPT/HCPCS: 58661; 81025; J0171; J0330; J1170; J2250; J2405; J2704; J3010